=== PATIENT | female | born 1995 | race Caucasian/White ===

== ENCOUNTER → 2019-01-29 | Outpatient (CLI) | payer BC ==
[2019-01-29 14:37] LABS: HEMATOCRIT 35 % (35-52); HEMOGLOBIN 11.6 G/DL (11.5-16.0); LYMPHOCYTES % (AUTO) 17 % (12-44); MEAN CORPUSCULAR HEMOGLOBIN 32 PG (25-34); MEAN CORPUSCULAR HGB CONC 34 G/DL (32-36); MEAN CORPUSCULAR VOLUME 96 FL (80-99); MEAN PLATELET VOLUME 12.7 FL (7.4-10.4); NEUTROPHILS % (AUTO) 77 % (42-75); PLATELET COUNT 172 10^3/uL (130-400); RED CELL DISTRIBUTION WIDTH 12.9 % (10.0-14.5); WHITE BLOOD COUNT 11.1 10^3/uL (4.3-11.0)
[2019-01-29 14:38] LABS: BASOPHILS % (AUTO) 0 % (0-10); EOSINOPHILS % (AUTO) 0 % (0-10); LYMPHOCYTES # (AUTO) 1.8 X 10^3 (1.0-4.0); MONOCYTES # (AUTO) 0.7 X 10^3 (0.0-1.0); MONOCYTES % (AUTO) 6 % (0-12); NEUTROPHILS # (AUTO) 8.5 X 10^3 (1.8-7.8)
[2019-01-29 15:18] LABS: CLARITY,URINE CLEAR; COLOR,URINE YELLOW
[2019-01-29 15:19] LABS: AMORPHOUS SEDIMENT,UR FEW AMOR PHOSPHATE /LPF; BACTERIA,URINE TRACE /HPF; BILIRUBIN,URINE NEGATIVE (NEGATIVE); GLUCOSE, URINE (UA) NEGATIVE (NEGATIVE); KETONES,URINE NEGATIVE (NEGATIVE); LEUKOCYTE ESTERASE ,URINE NEGATIVE (NEGATIVE); NITRITE,URINE NEGATIVE (NEGATIVE); PROTEIN,URINE NEGATIVE (NEGATIVE); SQUAMOUS EPITHELIAL CELL,UR 0-2 /HPF; UROBILINOGEN,URINE 0.2 MG/DL (NORMAL)
[2019-01-29 15:45] LABS: ALKALINE PHOSPHATASE 142 U/L (40-136); BILIRUBIN,TOTAL 0.3 MG/DL (0.1-1.0); BUN/CREATININE RATIO 10; CALCIUM 9.7 MG/DL (8.5-10.1); CARBON DIOXIDE 23 MMOL/L (21-32); CHLORIDE 106 MMOL/L (98-107); CREATININE SERUM 0.89 MG/DL (0.60-1.30); GFR ESTIMATED > 60; GLUCOSE 99 MG/DL (70-105); POTASSIUM 3.6 MMOL/L (3.6-5.0); SODIUM 140 MMOL/L (135-145)
[2019-01-29 15:46] LABS: ALANINE AMINOTRANSFERASE 36 U/L (0-55); ALBUMIN 3.4 GM/DL (3.2-4.5); TOTAL PROTEIN 6.6 GM/DL (6.4-8.2)
[2019-01-30 14:27] LABS: URIC ACID 3.7 MG/DL (2.6-7.2)
== END ==
LOC: LAB FS 13:54
PROVIDERS: ATTEND Family Medicine
DX: O13.3 Gestational [pregnancy-induced] hypertension without significant proteinuria, third trimester (principal)
CPT/HCPCS: 36415; 80053; 81000; 83615; 84550; 85025

== ENCOUNTER 2019-02-08 16:28 | Outpatient (CLI) | payer BC ==
[~2019-02-08] VITALS: Ht 154.9 cm; Wt 79.8 kg
[2019-02-08 16:35] VITALS: BP 137/93
[2019-02-08 17:00] VITALS: BP 136/88
[2019-02-08 17:19] LABS: BASOPHILS % (AUTO) 0 % (0-10); EOSINOPHILS # (AUTO) 0.1 10^3/uL (0.0-0.3); EOSINOPHILS % (AUTO) 0 % (0-10); HEMATOCRIT 34 % (35-52); HEMOGLOBIN 11.6 G/DL (11.5-16.0); LYMPHOCYTES # (AUTO) 1.9 X 10^3 (1.0-4.0); LYMPHOCYTES % (AUTO) 16 % (12-44); MEAN CORPUSCULAR HEMOGLOBIN 32 PG (25-34); MEAN CORPUSCULAR HGB CONC 34 G/DL (32-36); MEAN CORPUSCULAR VOLUME 94 FL (80-99); MEAN PLATELET VOLUME 13.6 FL (7.4-10.4); MONOCYTES # (AUTO) 0.8 X 10^3 (0.0-1.0); MONOCYTES % (AUTO) 7 % (0-12); NEUTROPHILS # (AUTO) 9.2 X 10^3 (1.8-7.8); NEUTROPHILS % (AUTO) 77 % (42-75); PLATELET COUNT 137 10^3/uL (130-400); RED CELL DISTRIBUTION WIDTH 13.2 % (10.0-14.5); WHITE BLOOD COUNT 12.1 10^3/uL (4.3-11.0)
[2019-02-08] MEDS ORDERED: PREN-102 PO (17:22)
[2019-02-08] MEDS ORDERED: FLUT9.9S NS (17:22)
[2019-02-08] MEDS ORDERED: FEXO1TAB43 PO (17:29)
[2019-02-08 17:44] LABS: ALANINE AMINOTRANSFERASE 37 U/L (0-55); ALBUMIN 3.3 GM/DL (3.2-4.5); ALKALINE PHOSPHATASE 149 U/L (40-136); BILIRUBIN,TOTAL 0.4 MG/DL (0.1-1.0); BUN/CREATININE RATIO 9; CALCIUM 9.1 MG/DL (8.5-10.1); CARBON DIOXIDE 20 MMOL/L (21-32); CHLORIDE 108 MMOL/L (98-107); CREATININE SERUM 0.77 MG/DL (0.60-1.30); GFR ESTIMATED > 60; GLUCOSE 81 MG/DL (70-105); POTASSIUM 3.6 MMOL/L (3.6-5.0); SODIUM 138 MMOL/L (135-145); TOTAL PROTEIN 6.3 GM/DL (6.4-8.2); URIC ACID 4.4 MG/DL (2.6-7.2)
[2019-02-08 18:55] VITALS: BP 128/86
[2019-02-08 19:06] LABS: BILIRUBIN,URINE NEGATIVE (NEGATIVE); COLOR,URINE YELLOW; GLUCOSE, URINE (UA) NEGATIVE (NEGATIVE); KETONES,URINE NEGATIVE (NEGATIVE); LEUKOCYTE ESTERASE ,URINE 2+ (NEGATIVE); NITRITE,URINE NEGATIVE (NEGATIVE); PH,URINE 7 (5-9); PROTEIN,URINE NEGATIVE (NEGATIVE); UROBILINOGEN,URINE NORMAL (NORMAL)
[2019-02-08 19:10] VITALS: BP 139/93
[2019-02-08 19:12] LABS: BACTERIA,URINE FEW /HPF; CLARITY,URINE SL CLOUDY
[2019-02-08 19:20] VITALS: BP 133/83
[2019-02-08] MEDS ORDERED: D5 LR IV SOLUTION 1,000 ML IV ONE (19:30)
[2019-02-08] MEDS ORDERED: D5 LR IV SOLUTION 1,000 ML IV SCH (19:45)
[2019-02-08] MEDS ORDERED: CEPHALEXIN 250 MG (KEFLEX) CAP PO NR (19:45)
[2019-02-08] MEDS ORDERED: hydrOXYzine (VISTARIL/ATARAX) 25 MG capsule/tablet PO NR (19:45)
[2019-02-08] MEDS ORDERED: CEPH-507 PO ×2 (21:05→21:07)
--- NOTE | 2019-02-08 21:15 | NUR ---
Discharge instructions discussed with pt. Pt questions answered per this RN. Signature sheet signed, placed on chart. Pt denies any concerns. Pt ambulating to private vehicle with s.o. at side. No signs of distress noted.
== END 2019-02-08 21:15 | disposition home or self-care (01) ==
LOC: LDRP 16:28 → WSo 16:28
PROVIDERS: ATTEND Family Medicine
DX: R03.0 Elevated blood-pressure reading, without diagnosis of hypertension (principal)
CPT/HCPCS: 36415; 80053; 81000; 82570; 83615; 84156; 84550; 85025; 87081; 87088; 96360; 99214

== ENCOUNTER → 2019-02-15 | Outpatient (CLI) | payer BC ==
[~2019-02-15] MED LIST: CEPH-507 PO; FEXO1TAB43 PO; FLUT9.9S NS; PREN-102 PO
[2019-02-15 11:12] LABS: BASOPHILS % (AUTO) 0 % (0-10); EOSINOPHILS # (AUTO) 0.1 10^3/uL (0.0-0.3); EOSINOPHILS % (AUTO) 1 % (0-10); HEMATOCRIT 36 % (35-52); HEMOGLOBIN 12.3 G/DL (11.5-16.0); LYMPHOCYTES # (AUTO) 1.9 X 10^3 (1.0-4.0); LYMPHOCYTES % (AUTO) 19 % (12-44); MEAN CORPUSCULAR HEMOGLOBIN 33 PG (25-34); MEAN CORPUSCULAR HGB CONC 34 G/DL (32-36); MEAN CORPUSCULAR VOLUME 95 FL (80-99); MEAN PLATELET VOLUME 13.8 FL (7.4-10.4); MONOCYTES # (AUTO) 0.5 X 10^3 (0.0-1.0); MONOCYTES % (AUTO) 5 % (0-12); NEUTROPHILS # (AUTO) 7.5 X 10^3 (1.8-7.8); NEUTROPHILS % (AUTO) 74 % (42-75); PLATELET COUNT 145 10^3/uL (130-400); RED CELL DISTRIBUTION WIDTH 13.2 % (10.0-14.5)
[2019-02-15 11:36] LABS: ALKALINE PHOSPHATASE 180 U/L (40-136); BILIRUBIN,TOTAL 0.4 MG/DL (0.1-1.0); BUN/CREATININE RATIO 8; CALCIUM 9.3 MG/DL (8.5-10.1); CARBON DIOXIDE 22 MMOL/L (21-32); CHLORIDE 100 MMOL/L (98-107); CREATININE SERUM 0.79 MG/DL (0.60-1.30); GFR ESTIMATED > 60; GLUCOSE 90 MG/DL (70-105); POTASSIUM 3.9 MMOL/L (3.6-5.0); SODIUM 137 MMOL/L (135-145)
[2019-02-15 11:37] LABS: ALANINE AMINOTRANSFERASE 46 U/L (0-55); ALBUMIN 3.7 GM/DL (3.2-4.5); TOTAL PROTEIN 7.1 GM/DL (6.4-8.2)
[2019-02-15 15:00] LABS: URIC ACID 4.3 MG/DL (2.6-7.2)
== END ==
LOC: LAB FS 10:54
PROVIDERS: ATTEND Family Medicine
DX: O16.3 Unspecified maternal hypertension, third trimester (principal); Z3A.00 Weeks of gestation of pregnancy not specified
CPT/HCPCS: 36415; 80053; 82570; 83615; 84156; 84550; 85025

== ENCOUNTER 2019-02-18 16:10 | Inpatient (IN) | payer BC ==
[2019-02-18] VITALS (16 sets, daily range): BP systolic 129–166; BP diastolic 60–99
[~2019-02-18] VITALS: Ht 154.9 cm; Wt 83.9 kg
--- NOTE | 2019-02-18 16:10 | NUR ---
MITESH MATHEWS presented to unit via AMBULATION from HOME, , with c/o PREECLAMPSIA. MITESH MATHEWS S weighed, gowned, voided, and to bed. EFHM and TOCO applied, VS taken. MITESH MATHEWS S oriented to bed controls, call light, TV, heat, and A/C controls.
[2019-02-18] MEDS ORDERED: hydrALAZINE (APESOLINE) 20 MG/ML VIAL IV PRN (18:15)
[2019-02-18] MEDS ORDERED: LACTATED RINGERS 1,000 ML IV SCH (18:18)
[2019-02-18 18:30] LABS: BILIRUBIN,URINE NEGATIVE (NEGATIVE); CLARITY,URINE CLEAR; COLOR,URINE YELLOW; GLUCOSE, URINE (UA) NEGATIVE (NEGATIVE); KETONES,URINE NEGATIVE (NEGATIVE); LEUKOCYTE ESTERASE ,URINE NEGATIVE (NEGATIVE); NITRITE,URINE NEGATIVE (NEGATIVE); PH,URINE 7 (5-9); PROTEIN,URINE NEGATIVE (NEGATIVE); UROBILINOGEN,URINE NORMAL (NORMAL)
[2019-02-18] MEDS ORDERED: MINERAL OIL CONCENTRATE 99.9% 15 ML UDC TOP PRN (18:30)
[2019-02-18] MEDS ORDERED: TERBUTALINE INJ 1 MG/ML (BRETHINE) AMP SC PRN (18:30)
[2019-02-18 18:40] LABS: URINE CREATININE FOR RATIO 19 MG/DL (30-125); URINE PROTEIN FOR RATIO ONLY < 6 MG/DL (6-12)
[2019-02-18 18:41] LABS: BACTERIA,URINE NEGATIVE /HPF; SQUAMOUS EPITHELIAL CELL,UR RARE /HPF
[2019-02-18 18:49] LABS: BASOPHILS % (AUTO) 0 % (0-10); EOSINOPHILS % (AUTO) 0 % (0-10); HEMATOCRIT 35 % (35-52); HEMOGLOBIN 11.8 G/DL (11.5-16.0); LYMPHOCYTES % (AUTO) 19 % (12-44); MEAN CORPUSCULAR HEMOGLOBIN 32 PG (25-34); MEAN CORPUSCULAR HGB CONC 34 G/DL (32-36); MEAN CORPUSCULAR VOLUME 95 FL (80-99); MONOCYTES # (AUTO) 0.7 X 10^3 (0.0-1.0); MONOCYTES % (AUTO) 6 % (0-12); NEUTROPHILS % (AUTO) 74 % (42-75); PLATELET COUNT 129 10^3/uL (130-400); RED CELL DISTRIBUTION WIDTH 13.2 % (10.0-14.5); WHITE BLOOD COUNT 10.7 10^3/uL (4.3-11.0)
[2019-02-18] MEDS ORDERED: MISOPROSTOL 100 MCG (CYTOTEC) TAB PO SCH (19:00)
[2019-02-18] MEDS: D5 LR IV SOLUTION 1,000 ML IV SCH (19:40)
[2019-02-18] MEDS: MISOPROSTOL 100 MCG (CYTOTEC) TAB PV SCH (20:41)
[2019-02-19] VITALS (92 sets, daily range): BP systolic 124–186; BP diastolic 64–104
[2019-02-19] MEDS: MISOPROSTOL 100 MCG (CYTOTEC) TAB PV SCH ×2 (00:40→05:59)
[2019-02-19] MEDS: fentaNYL INJECTION 100 MCG/2 ML AMP IVP PRN ×2 (01:22→03:26)
[2019-02-19] MEDS: D5 LR IV SOLUTION 1,000 ML IV SCH ×3 (03:16→21:10)
[2019-02-19] MEDS ORDERED: SUFENTA 0.6MCG/ML BUPIVA 0.125 100 ML ONE (04:21)
[2019-02-19] MEDS ORDERED: OXYTOCIN/NORMAL SALINE 500 ML IV SCH ×2 (04:37→07:00)
[2019-02-19] MEDS ORDERED: fentaNYL INJECTION 100 MCG/2 ML AMP ONE (04:41)
[2019-02-19] MEDS ORDERED: BUPIVACAINE 0.25% 30 ML (SENSORCAINE) VIAL ONE (04:41)
--- NOTE | 2019-02-19 04:48 | NUR ---
Genaro Us here for epidural placement. Procedure explained, consent reviewed and signed by anesthesia. Questions answered to patient's satisfaction. Time out taken to verify correct patient/procedure. Patient up to side of bed, assisted into sitting position. Betadine prep done x3 and sterile drape applied. Local done, see anesthesia record. Test dose given, see anesthesia record for drug and dosage. Epidural catheter secured in place. Epidural placement complete. Assisted back into bed, monitors adjusted. Epidural dosed, see anesthesia record. Epidural of Sufenta/Bupvicaine @ 10 cc/hr stated per pump. Patient tolerated procedure well.
[2019-02-19] MEDS: EPIDURAL (SUFENTA 0.6MCG/ML BUPIVA 0.125%) 100 ML BAG EPI SCH ×2 (05:12→13:42)
[2019-02-19] MEDS ORDERED: LACTATED RINGERS 1,000 ML IV ONE (05:20)
[2019-02-19] MEDS ORDERED: CATHETER FLUSH 10 ML SYR IV PRN (05:30)
[2019-02-19] MEDS ORDERED: NALOXONE 0.4 MG/ML 1 ML (NARCAN) VIAL IV PRN (05:30)
--- NOTE | 2019-02-19 08:46 | Labor Progress Note ---
Labor Progress Note Labor Progress Note Date Seen by Provider: Feb 19, 2019 Time Seen by Provider: 08:38 Subjective: Pt denies complaints. Comfortable with epidural. Objective: (Can we insert 24 hour vitals here?) Cervical exam: 3 Consistency: soft Position: anterior Presentation: vtx heart tones: 140s beats per minute, average variability, reactive Tocometer: q1-2 min Assessment/Plan: Aishwarya Prakash is a (23 /Para / ,Gestational Age (wks)37 here for gestational hypertension. AROM with abundant clear fluid. FSE placed. Mom and baby tolerated exam. CEFM/TOCO Continue pitocin Anesthesia: epidural Anticipate vaginal delivery. Vitals - Labs Vital Signs - I&O Vital Signs Date Time Temp Pulse Resp B/P (MAP) Pulse Ox O2 Delivery O2 Flow Rate FiO2 02/19/19 06:45 84 16 124/84 (97) 99 Room Air 02/19/19 06:30 75 16 127/83 (98) 99 Room Air 02/19/19 06:15 86 16 127/76 (93) 99 Room Air 02/19/19 06:00 86 16 128/82 (97) 99 Room Air 02/19/19 05:46 85 16 134/86 (102) 99 Room Air 02/19/19 05:43 77 16 134/83 (100) 99 Room Air 02/19/19 05:40 105 16 137/83 (101) 99 Room Air 02/19/19 05:36 102 16 141/84 (103) 99 Room Air 02/19/19 05:33 81 16 138/85 (102) 99 Room Air 02/19/19 05:30 77 16 137/88 (104) 98 Room Air 02/19/19 05:26 95 16 131/82 (98) 98 Room Air 02/19/19 05:23 95 16 128/79 (95) 98 Room Air 02/19/19 05:20 107 16 128/64 (85) 98 Room Air 02/19/19 05:18 95 16 128/68 (88) 98 Room Air 02/19/19 05:14 110 16 144/70 (94) 98 Room Air 02/19/19 05:12 111 16 130/82 (98) 98 Room Air 02/19/19 05:08 111 16 139/85 (103) 98 Room Air 02/19/19 05:05 86 16 143/86 (105) 98 Room Air 02/19/19 05:00 86 16 154/91 (112) 100 Room Air 02/19/19 04:55 98 16 159/71 (100) 100 Room Air 02/19/19 04:45 88 16 155/74 (101) Room Air 02/19/19 04:30 98.6 73 16 156/81 (106) Room Air 02/19/19 04:15 90 16 153/81 (105) Room Air 02/19/19 04:00 68 16 152/79 (103) Room Air 02/19/19 03:45 64 16 143/69 (93) Room Air 02/19/19 03:25 67 16 149/76 (100) Room Air 02/19/19 03:08 80 16 154/99 (117) Room Air 02/19/19 02:50 63 16 160/79 (106) Room Air 02/19/19 02:25 60 16 160/76 (104) Room Air 02/19/19 01:50 63 16 151/86 (107) Room Air 02/19/19 01:40 65 16 154/86 (108) Room Air 02/19/19 01:25 97 16 135/85 (102) Room Air 02/19/19 01:15 65 16 168/97 (120) Room Air 02/19/19 00:55 65 16 177/85 (115) Room Air 02/19/19 00:25 98.9 65 16 149/92 (111) Room Air 02/18/19 23:55 71 16 135/71 (92) Room Air 02/18/19 23:25 70 16 154/72 (99) Room Air 02/18/19 22:55 68 16 129/60 (83) Room Air 02/18/19 22:25 69 16 136/89 (105) Room Air 02/18/19 21:55 71 16 135/77 (96) Room Air 02/18/19 21:55 69 16 136/89 (105) Room Air 02/18/19 21:25 77 16 137/79 (98) Room Air 02/18/19 20:55 102 16 135/94 (108) Room Air 02/18/19 20:25 83 16 139/83 (101) Room Air 02/18/19 19:55 98.5 67 16 137/83 (101) Room Air 02/18/19 19:25 70 16 139/85 (103) Room Air 02/18/19 19:10 73 16 147/84 (105) Room Air I & O 02/19/19 07:00 Intake Total 2900 ml Balance 2900 ml Labs Laboratory Tests 02/18/19 18:06: Urine Color YELLOW, Urine Clarity CLEAR, Urine pH 7, Urine Specific [place] 1.005L, Urine Protein NEGATIVE, Urine Glucose (UA) NEGATIVE, Urine Ketones NEGATIVE, Urine Nitrite NEGATIVE, Urine Bilirubin NEGATIVE, Urine Urobilinogen NORMAL, Urine Leukocyte Esterase NEGATIVE, Urine RBC (Auto) NEGATIVE, Urine RBC NONE, Urine WBC NONE, Urine Squamous Epithelial Cells RARE, Urine Crystals NONE, Urine Bacteria NEGATIVE, Urine Casts NONE, Urine Mucus NEGATIVE, Urine Culture Indicated NO, Urine Creatinine 19L, Urine Protein/Creatinine Ratio 02/18/19 18:43: White Blood Count 10.7, Red Blood Count 3.67L, Hemoglobin 11.8, Hematocrit 35, Mean Corpuscular Volume 95, Mean Corpuscular Hemoglobin 32, Mean Corpuscular Hemoglobin Concent 34, Red Cell Distribution Width 13.2, Platelet Count 129L, Mean Platelet Volume , Neutrophils (%) (Auto) 74, Lymphocytes (%) (Auto) 19, Mo nocytes (%) (Auto) 6, Eosinophils (%) (Auto) 0, Basophils (%) (Auto) 0, Neutrophils # (Auto) 8.0H, Lymphocytes # (Auto) 2.0, Monocytes # (Auto) 0.7, Eosinophils # (Auto) 0.0, Basophils # (Auto) 0.0 RUDY HOLCOMB DO Feb 19, 2019 08:46
[2019-02-19] MEDS ORDERED: ACETAMINOPHEN 500 MG TAB (TYLENOL) ONE (12:23)
[2019-02-19] MEDS ORDERED: ACETAMINOPHEN 500 MG TAB (TYLENOL) PO PRN (12:30)
--- OUTSIDE RECORDS SUMMARY | 2019-02-19 13:26 | XMS REPORT | Continuity of Care Document ---
Author Organization Unknown Address Unknown Allergies There is no data. Medications There is no data. Problems There is no data. Procedures There is no data. Results Test Result Range PENTA SCREEN - 09/28/18 15:00 Maternal Weight 164 lbs NRG Est'd Date of Delivery 03/12/2019 NRG ADRIÁN Determined by LMP NRG Mother's Ethnic Origin NRG Number of Fetuses 1 NRG Insulin Depend Diabetic NO NRG Repeat Specimen NO NRG Hx Of Neural Tube Defects NO NRG Prev Down Synd NO NRG Donor Egg NO NRG Donor Age: Egg Retrieval NOT GIVEN NRG Cigarette smoker NO NRG INTERPRETATION: SEE NOTE NRG Risk for ONTD <1:5000 NRG Age Risk Down Syndrome 1:1045 NRG AGA Down Syndrome Risk <1:5000 <1:270 AGA Trisomy 18 Risk <1:5000 <1:100 Calc'd Gestational Age 16.4 NRG AFP, Serum 34.0 ng/mL NRG AFP MoM 1.05 NRG hCG, Serum 15.2 IU/mL NRG hCG MoM 0.51 NRG Estriol, Free 0.73 ng/mL NRG Estriol MoM 0.88 NRG Inhibin A, Dimeric 92 pg/mL NRG Inhibin A MoM 0.57 NRG h-hCG, Serum 17.9 mcg/L NRG h-hCG MoM 0.69 NRG Date of 1995 NRG Collection Date 09/28/2018 NRG GLUCOSE AFVIAN 1 HOUR - 12/29/18 15:03 GLUCOSE, POSTPRANDIAL/ 1 HOUR 129 mg/dL See Note: CBC - 12/29/18 15:03 WHITE BLOOD CELL COUNT 10.3 Thousand/uL 3.8-10.8 RED BLOOD CELL COUNT 3.49 Million/uL 3.80-5.10 HEMOGLOBIN 11.3 g/dL 11.7-15.5 HEMATOCRIT 33.6 % 35.0-45.0 MCV 96.3 fL 80.0-100.0 MCH 32.4 pg 27.0-33.0 MCHC 33.6 g/dL 32.0-36.0 RDW 12.7 % 11.0-15.0 PLATELET COUNT 191 Thousand/uL 140-400 MPV 11.9 fL 7.5-12.5 ABSOLUTE NEUTROPHILS 7797 cells/uL 7776-1919 ABSOLUTE LYMPHOCYTES 1875 cells/uL 850-3900 ABSOLUTE MONOCYTES 546 cells/uL 200-950 ABSOLUTE EOSINOPHILS 62 cells/uL 15-500 ABSOLUTE BASOPHILS 21 cells/uL 0-200 NEUTROPHILS 75.7 % NRG LYMPHOCYTES 18.2 % NRG MONOCYTES 5.3 % NRG EOSINOPHILS 0.6 % NRG BASOPHILS 0.2 % NRG Encounters ACCT No. Visit Date/Time Discharge Status Pt. Type Provider Facility Loc./Unit Complaint [id number] 02/15/2019 15:00:00 02/15/2019 23:59:59 [id number] 12/29/2018 14:00:00 Document Registration [id number] 09/28/2018 13:30:00 Document Registration
[2019-02-19] MEDS ORDERED: LIDOCAINE/EPI 2% 1:200,00 (XYLOCAINE) 10 ML VIAL ONE (17:29)
[2019-02-19] MEDS: OXYTOCIN/NORMAL SALINE 500 ML IV SCH ×2 (19:00→20:45)
[2019-02-19] MEDS ORDERED: WITCH HAZEL(TUCKS) 40 EA JAR TOP PRN (19:30)
[2019-02-19] MEDS ORDERED: MEASLES,MUMPS,RUBELLA 1 EA INJ SQ ONE (19:30)
[2019-02-19] MEDS ORDERED: TETANUS,DIPTH,PERTUSS P/F (BOOSTRIX) 0.5 ML VIAL IM ONE (19:30)
--- NOTE | 2019-02-19 19:30 | NUR ---
Pt assisted with pericare, epidural catheter removed tip intact. Pt assisted to W/C and brought to infant in nursery. Mother denies nausea or dizziness at this time.
--- NOTE | 2019-02-19 19:30 | History & Physical-OB ---
OB - Chief Complaint & HPI Date/Time Date of Admission: Date of Admission: Feb 18, 2019 at 17:25 Date seen by a Provider: Feb 19, 2019 Time Seen by a Provider: 18:00 Chief Complaint/History OB-Reason for Admission/Chief: Induction of Labor Hx : 1 Expected Date of Delivery: Mar 12, 2019 Gestational Age in Weeks: 36 Gestational Age in Days: 6 Indication for induction: medical complication ( induced hypertension with thrombocytopenia and elevated LFT's) Admission Nurse Assessment Rev: Yes Allergies and Home Medications Allergies Coded Allergies: No Known Drug Allergies (Unverified , 02/08/19) Home Medications Fexofenadine/Pseudoephedrine 1 Each Tab.er.24h, 1 EACH PO DAILY, (Reported) Fluticasone Propionate 9.9 Ml [place].susp, 2 SPRAY NS DAILY, (Reported) 2 SPRAYS PER NOSTRIL DAILY X 2 DAYS THEN 1 SPRAY DAILY Vits #93/Iron Fum/FA 1 Each Tablet, 1 EACH PO DAILY, (Reported) Patient Home Medication List Home Medication List Reviewed: Yes OB - History Hx of Present Care: Yes Ultrasounds: Abnormal US findings Obstetrical Complications: Gestational Hypertension Medical Complications: None Patient Past Medical History previously healthy Social History/Family History Alcohol Use: Denies Use Recreational Drug Use: No OB - Admission Exam Physical Exam Vitals: Vital Signs 02/19/19 02/19/19 08:30 13:35 Temp 99.1 Pulse 77 Resp 18 B/P (MAP) 141/82 (101) Pulse Ox 97 O2 Delivery Room Air HEENT: NCAT Heart: Rhythm Normal Lungs: Clear Abdomen: Gravid Extremities: Normal Reflexes: Normal Cervical Dilatation: 10cm Effacement: 100% Station: +2 Membranes: Ruptured Amniotic Fluid: Clear Heart Rate: 130's Accelerations: Accelerations Present Decelerations: No Decelerations Short Term Variability: Present Detention Variability: Average (6-25) Contractions on Admission: >10 Minutes Apart OB - Assessment/Plan/Diagnosis Assessment Assessment: induction of labor Admission Dx induced hypertension at 37 0/7 wga. Admission Status: Inpatient Order (span 2 midnights) Reason for Inpatient Admission: Induction of labor at 37 weeks. Plan Plan: Induction Induction Method: per Pitocin Protocol SAGAR ROMANO MD Feb 19, 2019 19:30
--- NOTE | 2019-02-19 19:32 | OB Labor & Delivery Record ---
Vag Delivery Note Vag Delivery Note Date of Delivery: 02/19/19 Preoperative Diagnosis: Aishwarya Prakash is a (23 /Para 1 / ,Gestational Age (wks)37with [0 days] Postoperative Diagnosis: Same Surgeon: SAGAR ROMANO Enterprise Application Administrator: [] Anesthesia: [epidural] Delivery Type: [] Findings: [] Viable [male] , apgars [], weight [6 pounds 8 ounces] Lacerations: Intact placenta with 3 vessel cord. Loose nuchal cord delivered through times 1 Estimated Blood Loss: [200] ml Complications: None Condition: Stable Description of Procedure: The patient is a 23 year old female who presented [for induction of labor]. She was admitted and informed consent was obtained. Her labor course was remarkable for [PIH] She progressed to complete dilatation and began to push. She was then set up for delivery. The infant's head was delivered atraumatically in the [OA] position. The shoulders and remainder of the 's body were then delivered without difficulty. Upon delivery, the head was held below the level of the perineum and the mouth and nares were bulb suctioned. The cord was doubly clamped and cut after 60 seconds on maternal abdomen. An intact placenta with 3-vessel cord delivered via Leah and there was found to be minimal bleeding.~ Vigorous fundal massage was performed and the fundus was found to be firm. IV oxytocin was given. Examination of the vagina and perineum revealed a [2nd degree perineal] laceration repaired in the usual fashion with 3-0 vicryl suture. Following the repair, sponge, instrument and needle counts were correct. Mom and baby were both in stable condition in the labor suite. Vitals - Labs Vital Signs - I&O Vital Signs Date Time Temp Pulse Resp B/P (MAP) Pulse Ox O2 Delivery O2 Flow Rate FiO2 02/19/19 13:35 99.1 77 18 141/82 (101) Room Air 02/19/19 13:21 75 18 135/80 (98) Room Air 02/19/19 13:05 75 18 151/91 (111) Room Air 02/19/19 12:50 76 18 150/92 (111) Room Air 02/19/19 12:35 90 18 136/91 (106) Room Air 02/19/19 12:23 80 18 162/93 (116) Room Air 02/19/19 12:05 77 18 150/89 (109) Room Air 02/19/19 11:48 85 18 157/93 (114) Room Air 02/19/19 11:43 85 16 155/92 (113) Room Air 02/19/19 11:38 85 16 160/87 (111) Room Air 02/19/19 11:35 99.1 86 16 162/83 (109) Room Air 02/19/19 11:20 75 16 171/91 (117) Room Air 02/19/19 11:05 100.1 77 16 165/91 (115) Room Air 02/19/19 10:50 77 16 159/89 (112) Room Air 02/19/19 10:35 75 16 150/88 (108) Room Air 02/19/19 10:20 72 16 160/88 (112) Room Air 02/19/19 10:00 79 16 143/95 (111) Room Air 02/19/19 09:55 86 16 140/90 (107) Room Air 02/19/19 09:50 77 16 153/88 (109) Room Air 02/19/19 09:45 83 16 159/104 (122) Room Air 02/19/19 09:40 90 16 145/95 (112) Room Air 02/19/19 09:35 99.0 74 16 171/97 (121) Room Air 02/19/19 09:30 72 16 173/93 (119) Room Air 02/19/19 09:20 76 16 160/97 (118) Room Air 02/19/19 09:05 82 16 137/95 (109) Room Air 02/19/19 08:45 78 16 158/94 (115) Room Air 02/19/19 08:30 78 16 148/88 (108) 97 Room Air 02/19/19 08:15 81 16 140/87 (104) 96 Room Air 02/19/19 08:00 81 16 140/87 (104) 96 Room Air 02/19/19 07:50 75 16 136/84 (101) 98 Room Air 02/19/19 07:35 99.3 77 16 137/85 (102) 97 Room Air 02/19/19 07:20 75 16 137/84 (101) 98 Room Air 02/19/19 07:04 75 16 137/86 (103) 98 Room Air 02/19/19 06:45 84 16 124/84 (97) 99 Room Air 02/19/19 06:30 75 16 127/83 (98) 99 Room Air 02/19/19 06:15 86 16 127/76 (93) 99 Room Air 02/19/19 06:00 86 16 128/82 (97) 99 Room Air 02/19/19 05:46 85 16 134/86 (102) 99 Room Air 02/19/19 05:43 77 16 134/83 (100) 99 Room Air 02/19/19 05:40 105 16 137/83 (101) 99 Room Air 02/19/19 05:36 102 16 141/84 (103) 99 Room Air 02/19/19 05:33 81 16 138/85 (102) 99 Room Air 02/19/19 05:30 77 16 137/88 (104) 98 Room Air 02/19/19 05:26 95 16 131/82 (98) 98 Room Air 02/19/19 05:23 95 16 128/79 (95) 98 Room Air 02/19/19 05:20 107 16 128/64 (85) 98 Room Air 02/19/19 05:18 95 16 128/68 (88) 98 Room Air 02/19/19 05:14 110 16 144/70 (94) 98 Room Air 02/19/19 05:12 111 16 130/82 (98) 98 Room Air 02/19/19 05:08 111 16 139/85 (103) 98 Room Air 02/19/19 05:05 86 16 143/86 (105) 98 Room Air 02/19/19 05:00 86 16 154/91 (112) 100 Room Air 02/19/19 04:55 98 16 159/71 (100) 100 Room Air 02/19/19 04:45 88 16 155/74 (101) Room Air 02/19/19 04:30 98.6 73 16 156/81 (106) Room Air 02/19/19 04:15 90 16 153/81 (105) Room Air 02/19/19 04:00 68 16 152/79 (103) Room Air 02/19/19 03:45 64 16 143/69 (93) Room Air 02/19/19 03:25 67 16 149/76 (100) Room Air 02/19/19 03:08 80 16 154/99 (117) Room Air 02/19/19 02:50 63 16 160/79 (106) Room Air 02/19/19 02:25 60 16 160/76 (104) Room Air 02/19/19 01:50 63 16 151/86 (107) Room Air 02/19/19 01:40 65 16 154/86 (108) Room Air 02/19/19 01:25 97 16 135/85 (102) Room Air 02/19/19 01:15 65 16 168/97 (120) Room Air 02/19/19 00:55 65 16 177/85 (115) Room Air 02/19/19 00:25 98.9 65 16 149/92 (111) Room Air 02/18/19 23:55 71 16 135/71 (92) Room Air 02/18/19 23:25 70 16 154/72 (99) Room Air 02/18/19 22:55 68 16 129/60 (83) Room Air 02/18/19 22:25 69 16 136/89 (105) Room Air 02/18/19 21:55 71 16 135/77 (96) Room Air 02/18/19 21:55 69 16 136/89 (105) Room Air 02/18/19 21:25 77 16 137/79 (98) Room Air 02/18/19 20:55 102 16 135/94 (108) Room Air 02/18/19 20:25 83 16 139/83 (101) Room Air 02/18/19 19:55 98.5 67 16 137/83 (101) Room Air I & O 02/19/19 07:00 Intake Total 2900 ml Balance 2900 ml SAGAR ROMANO MD Feb 19, 2019 19:32
[2019-02-19] MEDS: IBUPROFEN 600 MG (MOTRIN) TAB PO SCH (21:09)
[2019-02-19] MEDS: DOCUSATE SODIUM 100 MG (COLACE) CAP PO SCH (21:09)
[2019-02-19] MEDS ORDERED: CATHETER FLUSH 10 ML SYR IV SCH (22:00)
[2019-02-20] VITALS: BP 120/73
[2019-02-20] MEDS ORDERED: IBUPROFEN 600 MG (MOTRIN) TAB PO SCH
[2019-02-20 04:00] VITALS: BP 140/96
[2019-02-20] MEDS: IBUPROFEN 600 MG (MOTRIN) TAB PO SCH ×4 (04:00→22:18)
[2019-02-20 06:33] LABS: BASOPHILS % (AUTO) 0 % (0-10); EOSINOPHILS # (AUTO) 0.1 10^3/uL (0.0-0.3); EOSINOPHILS % (AUTO) 0 % (0-10); HEMATOCRIT 32 % (35-52); LYMPHOCYTES # (AUTO) 2.5 X 10^3 (1.0-4.0); LYMPHOCYTES % (AUTO) 13 % (12-44); MEAN CORPUSCULAR HEMOGLOBIN 32 PG (25-34); MEAN CORPUSCULAR HGB CONC 34 G/DL (32-36); MEAN CORPUSCULAR VOLUME 95 FL (80-99); MEAN PLATELET VOLUME 13.9 FL (7.4-10.4); MONOCYTES # (AUTO) 1.3 X 10^3 (0.0-1.0); MONOCYTES % (AUTO) 7 % (0-12); NEUTROPHILS # (AUTO) 14.9 X 10^3 (1.8-7.8); NEUTROPHILS % (AUTO) 80 % (42-75); PLATELET COUNT 128 10^3/uL (130-400); RED CELL DISTRIBUTION WIDTH 13.4 % (10.0-14.5); WHITE BLOOD COUNT 18.8 10^3/uL (4.3-11.0)
[2019-02-20 08:32] VITALS: BP 128/83
[2019-02-20] MEDS: DOCUSATE SODIUM 100 MG (COLACE) CAP PO SCH ×2 (08:32→20:58)
[2019-02-20] MEDS: BENZOCAINE/MENTHOL (DERMOPLAST) 56 ML CAN TP PRN (08:32)
--- NOTE | 2019-02-20 08:32 | NUR ---
AM shift assessment completed and vital signs obtained, see interventions. Plan of care reviewed with patient. Patient verbalizes understanding and questions answered. Scheduled Colace PO given. Dermoplast to bathroom. Patient has showered this AM. Patient denies any current needs or concerns at this time. Extra pericare supplies and fresh water provided.
--- NOTE | 2019-02-20 10:00 | NUR ---
Dr. Nolasco here to see patient. New orders received.
--- NOTE | 2019-02-20 10:05 | NUR ---
Patient in nursery visiting . Scheduled Motrin PO given. Patient denies any current questions or concerns at this time.
--- NOTE | 2019-02-20 10:21 | Progress Note ---
Subjective Subjective/Events-last exam Doing well. Denies TAPIA and visual changes. Overall feeling better. BP improving. Good UOP. Review of Systems Date Seen by Provider: Feb 20, 2019 Time Seen by Provider: 10:00 Objective Exam Last Set of Vital Signs Vital Signs Date Time Temp Pulse Resp B/P (MAP) Pulse Ox O2 Delivery O2 Flow Rate FiO2 02/20/19 08:32 97.4 86 16 128/83 (98) 98 Room Air Capillary Refill : I&O Intake and Output 02/20/19 00:00 Intake Total 5600 ml Output Total 2350 ml Balance 3250 ml Intake Oral 2700 ml IV Total 2900 ml Output Urine Total 2350 ml # Voids 5 General: Alert, Oriented X3, Cooperative Psych/Mental Status: Mood NL Results/Procedures Lab Laboratory Tests 02/20/19 06:27: White Blood Count 18.8H, Red Blood Count 3.39L, Hemoglobin 11.0L, Hematocrit 32L , Mean Corpuscular Volume 95, Mean Corpuscular Hemoglobin 32, Mean Corpuscular Hemoglobin Concent 34, Red Cell Distribution Width 13.4, Platelet Count 128L, Mean Platelet Volume 13.9H, Neutrophils (%) (Auto) 80H, Lymphocytes (%) (Auto) 13, Monocytes (%) (Auto) 7, Eosinophils (%) (Auto) 0, Basophils (%) (Auto) 0, Neutrophils # (Auto) 14.9H, Lymphocytes # (Auto) 2.5, Monocytes # (Auto) 1.3H, Eosinophils # (Auto) 0.1, Basophils # (Auto) 0.0 Assessment/Plan Assessment/Plan Assessment & Plan s/p at 37wk; IOL for gestational hypertension, mild thrombocytopenia and mild LFT elevation - BP improving - Hb/plt stable - repeat in am - recheck LFT Anticipate DC to room in tomorrow. Clinical Quality Measures DVT/VTE Risk/Contraindication: Risk Factor Score Per Nursin RFS Level Per Nursing on Admit: 1=Low/No VTE PPX Copy Copies To 1: SAGAR ROMANO MD, LINDA K DO Feb 20, 2019 10:21
[2019-02-20 11:05] LABS: ALANINE AMINOTRANSFERASE 26 U/L (0-55); ALBUMIN 2.5 GM/DL (3.2-4.5); ALKALINE PHOSPHATASE 148 U/L (40-136); BILIRUBIN,TOTAL 0.4 MG/DL (0.1-1.0); BUN/CREATININE RATIO 9; CALCIUM 8.9 MG/DL (8.5-10.1); CARBON DIOXIDE 20 MMOL/L (21-32); CHLORIDE 111 MMOL/L (98-107); CREATININE SERUM 0.81 MG/DL (0.60-1.30); GFR ESTIMATED > 60; GLUCOSE 73 MG/DL (70-105); POTASSIUM 3.9 MMOL/L (3.6-5.0); SODIUM 138 MMOL/L (135-145); TOTAL PROTEIN 4.9 GM/DL (6.4-8.2)
[2019-02-20 11:31] VITALS: BP 134/91
--- NOTE | 2019-02-20 14:31 | Anesthesia-Regional Post-Op ---
Regional Patient Condition Mental Status: Alert, Oriented x3 Circulation: Same as Pre-Op Headache: Absent Sensation: Full Recovery Motor Block: Absent Post Op Complications Complications None Follow Up Care/Instructions Patient Instructions None needed. Anesthesia/Patient Condition Patient is doing well, no complaints, stable vital signs, no apparent adverse anesthesia problems. No complications reported per nursing. SHYANN KNIGHT CRNA Feb 20, 2019 14:31
[2019-02-20 16:00] VITALS: BP 148/85
--- NOTE | 2019-02-20 19:20 | NUR ---
Report to Taz Rushing RN.
--- NOTE | 2019-02-20 20:00 | NUR ---
WENT IN TO COMPLETE ASSESSMENT. PT NOT IN ROOM. WILL RETURN LATER.
[2019-02-20 21:30] VITALS: BP 140/87
--- NOTE | 2019-02-20 21:30 | NUR ---
ASSESSMENT COMPLETED. PT DENIES ANY NEEDS AT THIS TIME. WILL CONTINUE TO MONITOR.
[2019-02-21 02:25] VITALS: BP 138/90
[2019-02-21] MEDS: IBUPROFEN 600 MG (MOTRIN) TAB PO SCH ×2 (04:23→09:59)
[2019-02-21 06:00] LABS: MEAN PLATELET VOLUME 13.1 FL (7.4-10.4); RED CELL DISTRIBUTION WIDTH 13.6 % (10.0-14.5); WHITE BLOOD COUNT 14.6 10^3/uL (4.3-11.0)
[2019-02-21 06:20] LABS: ALANINE AMINOTRANSFERASE 22 U/L (0-55); ALBUMIN 2.6 GM/DL (3.2-4.5); ALKALINE PHOSPHATASE 116 U/L (40-136); BILIRUBIN,TOTAL 0.2 MG/DL (0.1-1.0); BUN/CREATININE RATIO 12; CALCIUM 8.6 MG/DL (8.5-10.1); CARBON DIOXIDE 21 MMOL/L (21-32); CHLORIDE 111 MMOL/L (98-107); CREATININE SERUM 0.77 MG/DL (0.60-1.30); GFR ESTIMATED > 60; GLUCOSE 73 MG/DL (70-105); POTASSIUM 3.6 MMOL/L (3.6-5.0); SODIUM 139 MMOL/L (135-145); TOTAL PROTEIN 5.1 GM/DL (6.4-8.2)
[2019-02-21 07:43] VITALS: BP 157/88
[2019-02-21] MEDS: DOCUSATE SODIUM 100 MG (COLACE) CAP PO SCH (07:43)
--- NOTE | 2019-02-21 07:43 | NUR ---
AM Shift assessment completed and vital signs obtained, see interventions. Plan of care reviewed with patient. Patient verbalizes understanding and questions answered. Scheduled Colace PO given.
[2019-02-21] MEDS ORDERED: IBUP-844 PO (08:20)
--- NOTE | 2019-02-21 08:22 | Discharge Instructions ---
Discharge Inst-Women's Serv Depart Medications New, Converted or Re-Newed RX: Other (will take over the counter) New Medications: Ibuprofen (Ibu) 600 Mg Tablet 600 MG PO Q6H PRN for CRAMPS, #90 TAB 0 Refills Continued Medications: Fluticasone Propionate (Flonase Allergy Relief) 9.9 Ml [place].susp 2 SPRAY NS DAILY, #1 EACH 2 SPRAYS PER NOSTRIL DAILY X 2 DAYS THEN 1 SPRAY DAILY Vits #93/Iron Fum/FA ( Formula Tablet) 1 Each Tablet 1 EACH PO DAILY, TAB Discontinued Medications: Fexofenadine/Pseudoephedrine (Iris-D 24 Hour Tablet) 1 Each Tab.er.24h 1 EACH PO DAILY, TAB Follow Up/Instructions Goal/Follow Up: Follow up with Dr. Welch in 6 weeks Activity Activity: Activity as Tolerated Nothing Inside Vagina: No Douching, No Lorraine, No Tampons Diet Discharge Diet: No Restrictions Symptoms to Report to : Bleeding Excessive, Pain Increased, Fever Over 101 Degrees F, Vaginal Bleeding Increase, Vaginal Discharge Foul, Questions/Concerns, Shortness of Breath For Any Problems or Questions: Contact Your Physician RUDY HOLCOMB DO Feb 21, 2019 08:22
--- NOTE | 2019-02-21 08:25 | Discharge Summary ---
Diagnosis/Chief Complaint Date of Admission Feb 18, 2019 at 17:25 Date of Discharge Feb 21, 2019 Admission Diagnosis Admission Diagnosis Induction of labor at 37 weeks. Gestational Hypertension Mild thrombocytopenia Discharge Diagnosis Induction of labor at 37 weeks s/p 2nd degree laceration Gestational Hypertension - improved Mild thrombocytopenia - resolved Discharge Summary-OBS Procedures None. Discharge Physical Examination Allergies: Coded Allergies: No Known Drug Allergies (Unverified , 02/08/19) Vitals & I&Os Vital Sign - Last 12Hours Date Time Temp Pulse Resp B/P (MAP) Pulse Ox O2 Delivery O2 Flow Rate FiO2 02/21/19 02:25 97.6 85 16 138/90 (106) Room Air 02/20/19 11:31 97 General Appearance: Alert, Oriented X3, Cooperative Psych/Mental Status: Mood NL Hospital Course Routine care. BP on DC 120-130/80-90 with resolution of symptoms. Thrombocytopenia resolved and normal LFT during admission. Labs Laboratory Tests 02/21/19 05:45: White Blood Count 14.6H, Red Blood Count 3.12L, Hemoglobin 10.0L, Hematocrit 30L , Mean Corpuscular Volume 97, Mean Corpuscular Hemoglobin 32, Mean Corpuscular Hemoglobin Concent 33, Red Cell Distribution Width 13.6, Platelet Count 137, Mean Platelet Volume 13.1H, Sodium Level 139, Potassium Level 3.6, Chloride Level 111H, Carbon Dioxide Level 21, Anion Gap 7, Blood Urea Nitrogen 9, Creati nine 0.77, Estimat Glomerular Filtration Rate > 60, BUN/Creatinine Ratio 12, Glucose Level 73, Calcium Level 8.6, Corrected Calcium 9.7, Total Bilirubin 0.2, Aspartate Amino Transf (AST/SGOT) 23, Alanine Aminotransferase (ALT/SGPT) 22, Alkaline Phosphatase 116, Total Protein 5.1L, Albumin 2.6L Discharge Instructions to patient/family Please see electronic discharge instructions given to patient. Discharge Medications Reviewed and agree with Discharge Medication list on patient's Discharge Instruction sheet Clinical Quality Measures DVT/VTE Risk/Contraindication: Risk Factor Score Per Nursin RFS Level Per Nursing on Admit: 1=Low/No VTE PPX Copy Copies To 1: SAGAR ROMANO MD, LINDA K DO Feb 21, 2019 08:25
[2019-02-21] MEDS: BENZOCAINE/MENTHOL (DERMOPLAST) 56 ML CAN TP PRN (11:34)
--- NOTE | 2019-02-21 11:34 | NUR ---
Discharge instructions and medications reviewed with patient both written and verbally. Patient verbalizes understanding and questions answered. Reviewed "Rooming in Status" and process for ordering meals with patient.
--- NOTE | 2019-02-21 11:45 | NUR ---
Patient discharged at this time to "Boarder Status."
== END 2019-02-21 11:45 | disposition home or self-care (01) | DRG 806 ==
LOC: WSo 16:10 → LDRP 16:10 → WSo 17:24 → LDRP 17:25
PROVIDERS: ADMIT Family Medicine; ATTEND Family Medicine
PROC: 10E0XZZ Delivery of Products of Conception, External Approach (ICD-10-PCS; principal; 2019-02-19)
PROC: 0KQM0ZZ Repair Perineum Muscle, Open Approach (ICD-10-PCS; 2019-02-19)
PROC: 3E033VJ Introduction of Other Hormone into Peripheral Vein, Percutaneous Approach (ICD-10-PCS; 2019-02-19)
DX: O13.4 Gestational [pregnancy-induced] hypertension without significant proteinuria, complicating childbirth (principal); O99.12 Other diseases of the blood and blood-forming organs and certain disorders involving the immune mechanism complicating childbirth; D69.6 Thrombocytopenia, unspecified; O70.1 Second degree perineal laceration during delivery; O69.81X0 Labor and delivery complicated by cord around neck, without compression, not applicable or unspecified; R79.89 Other specified abnormal findings of blood chemistry; Z37.0 Single live birth; Z3A.37 37 weeks gestation of pregnancy
CPT/HCPCS: 36415; 80053; 81000; 82570; 84156; 85025; 85027; 86850; 86900; 86901

== ENCOUNTER → 2019-02-24 | Outpatient (CLI) | payer BC ==
[~2019-02-24] MED LIST changes: +IBUP-844 PO
== END ==
LOC: LAB 10:37
PROVIDERS: ATTEND Family Medicine
DX: Z20.2 Contact with and (suspected) exposure to infections with a predominantly sexual mode of transmission (principal)
CPT/HCPCS: 36415; 86780

== ENCOUNTER → 2019-08-16 | Outpatient (CLI) | payer BC ==
[~2019-08-16] MED LIST changes: +CATHETER FLUSH 10 ML SYR IV PRN
--- NOTE | 2019-08-16 15:26 | Diagnostic Imaging Report ---
INDICATION: Right upper quadrant pain. TECHNIQUE: Patient was administered 5.3 mCi technetium 99m Choletec intravenously and imaging over the abdomen was performed. At 45 minutes, patient ingested 8 ounces of Ensure and a gallbladder ejection fraction was calculated. Patient denied discomfort during the exam. FINDINGS: There is homogeneous uptake of activity by the liver. Prompt excretion of activity into the common duct and gallbladder is noted. There is normal passage of activity into the small bowel. Note is made of small amount of activity within the stomach, consistent with bile reflux. Gallbladder ejection fraction is normal at 42%. IMPRESSION: 1. Patent cystic duct and common bile duct. 2. Normal gallbladder ejection fraction of 42%. 3. Mild bile reflux into the stomach. Dictated by: Dictated on workstation # [id number]
== END ==
LOC: CARD 12:12
PROVIDERS: ATTEND Family Medicine
DX: R10.11 Right upper quadrant pain (principal)
CPT/HCPCS: 78227